=== PATIENT | male | born 1945 | race Caucasian/White ===

== ENCOUNTER 2019-02-06 06:41 | Day surgery (SDC) | payer MEDICARE ==
[2019-02-05 08:39] VITALS: BMI 25.1
[2019-02-06 07:51] LABS: #Basophils 0.1 thou/uL (0.0-0.2); #Eosinphils 0.3 thou/uL (0.0-0.7); #Lymphocytes 2.3 thou/uL (1.20-3.40); #Monocytes 0.8 thou/uL (0.11-0.59); #Neutrophils 3.3 thou/uL (1.40-6.50); %Basophils 1.3 % (0.0-1.0); %Eosinophils 3.9 % (0.0-10.0); %Lymphocytes 33.6 % (21.0-51.0); %Monocytes 12.1 % (0.0-10.0); Hemoglobin 15.7 g/dL (14.0-18.0); Mean Corpuscular HGB CONC 32.8 g/dL (32.0-36.0); Mean Corpuscular Hemoglobin 31.4 pg (27.0-31.0); Mean Corpuscular Volume 95.8 fL (78.0-98.0); Mean Platelet Volume 8.9 fL (7.4-10.4); Platelet Count 258 thou/uL (130-400); RBC Distribution Width 12.3 % (11.5-14.5); Red Blood Cell (RBC) Count 5.02 mill/uL (4.70-6.10); White Blood Cell (WBC) Count 6.8 thou/uL (4.8-10.8)
--- NOTE | 2019-02-06 08:35 | RAD ---
FRONTAL VIEW CHEST: INDICATIONS: Preoperative evaluation. FINDINGS: There is no evidence of consolidation, effusion, or pneumothorax. The cardiac silhouette is accentua carmela by the portable technique. IMPRESSION: No focal consolidation. POS: [facility]
[2019-02-06] MEDS ORDERED: Bupivacaine PF 0.5% 30 ML VIAL ONE (11:30)
[2019-02-06] MEDS ORDERED: Betamet Acet/Betamet Na Ph 30 MG/5 ML VIAL ONE (11:30)
[2019-02-06] MEDS ORDERED: Bacitracin Zinc Ointment 30 gm TUBE ONE (11:30)
[2019-02-06] MEDS ORDERED: Propofol 500 MG/50 ML VIAL ONE (12:00)
[2019-02-06] MEDS ORDERED: PROPOFOL 0 ML ONE (12:00)
[2019-02-06] MEDS ORDERED: Fentanyl 100 MCG/2 ML VIAL ONE (12:00)
[2019-02-06] MEDS ORDERED: Famotidine/PF 20 mg/2ml Vial ONE (12:00)
[2019-02-06] MEDS ORDERED: Ondansetron PF 4 MG/2 ML Vial ONE ×2 (12:22→16:22)
[2019-02-06] MEDS ORDERED: ePHEDrine/0.9% NaCl/PF SYRINGE 50 mg/10 ml ONE (12:43)
[2019-02-06] MEDS ORDERED: Ketorolac Tromethamine 30 MG/ML VIAL ONE ×2 (13:14)
[2019-02-06] MEDS ORDERED: ePHEDrine 50 MG/ML VIAL ONE (16:22)
[2019-02-06] MEDS ORDERED: PROPOFOL 200 MG/20 ML VIAL ONE (16:22)
--- NOTE | 2019-02-07 02:59 | OP ---
DATE OF PROCEDURE: 02/06/2019 PREOPERATIVE DIAGNOSIS: Right index finger dorsal proximal interphalangeal joint ganglion. POSTOPERATIVE DIAGNOSIS: ganglion with stalk running between the tendon with the synovitis of the joint. PROCEDURES PERFORMED: 1. Arthrotomy, proximal interphalangeal joint with synovectomy. 2. Ganglion finger excision. FINDINGS: 1.5 cm diameter mass. ESTIMATED BLOOD LOSS: 5 mL blood loss. TOURNIQUET TIME: 11 minutes. DESCRIPTION OF PROCEDURE: After successful general endotracheal anesthesia, the limb was prepped and draped. The patient had 12 mL of 0.5% Marcaine given at the metacarpophalangeal block level. We exsanguinated the limb, inflated tourniquet to 250 mmHg pressure, made a zigzag incision over the proximal phalangeal joint over its lateral edge to avoid the central line of the lesion and the joint. We then dissected down, found the mass, We slowly dissected the sheath and it from the tendon. We found some striated tendon fascicles which were split and the mass seemed to extend to it, so we opened the joint at this point, found the stalk with some synovitis via arthrotomy, did a synovectomy. We irrigated the joint. We removed the mass, sent it to the lab along with stalk. We released the tourniquet, obtained hemostasis. Then we were able to close the 1 cm longitudinal incision of the tendon with a running 5-0 buried Prolene suture. There was no gap formation at 90 degrees of flexion. We finished hemostasis, and closed the wound with 4-0 nylon interrupted mattress pattern and the patient left the operating room without evidence of anesthetic operative complication. Job ID: [id number]
== END 2019-02-06 14:17 | disposition home or self-care (01) ==
LOC: SDC 06:41
PROVIDERS: ATTEND Orthopaedic Surgery Hand Surgery
PROC: 0LB70ZZ Excision of Right Hand Tendon, Open Approach (ICD-10-PCS; principal; 2019-02-06)
DX: M67.441 Ganglion, right hand (principal); E78.00 Pure hypercholesterolemia, unspecified; I10 Essential (primary) hypertension; Z79.82 Long term (current) use of aspirin; Z79.899 Other long term (current) drug therapy; Z88.2 Allergy status to sulfonamides; Z88.5 Allergy status to narcotic agent
CPT/HCPCS: 36415; 71045; 85025; 88304; 93005; 93010; J0131; J0690; J0702; J1885; J2405; J2704; J3010; J3490; S0020; S0028

== ENCOUNTER 2021-12-19 11:00 | Outpatient (CLI) | payer MEDICARE ==
[2021-12-19 12:19] LABS: #Basophils 0.1 10x3/uL (0.0-0.2); #Eosinphils 0.1 10x3/uL (0.0-0.5); #Monocytes 0.7 10x3/uL (0.0-1.1); #Neutrophils 3.8 10x3/uL (1.5-8.4); %Basophils 0.8 % (0.0-2.0); %Eosinophils 1.6 % (0.0-6.0); %Lymphocytes 25.9 % (18.0-47.0); %Monocytes 11.6 % (0.0-10.0); %Neutrophils 59.5 % (40.0-75.0); Hemoglobin 15.7 g/dL (13.5-17.5); Mean Corpuscular HGB CONC 32.7 g/dL (32.0-36.0); Mean Corpuscular Hemoglobin 30.6 pg (27.0-33.0); Mean Corpuscular Volume 93.6 fl (81.2-95.1); Mean Platelet Volume 9.8 fl (7.4-10.4); Platelet Count 313 10x3/uL (150-450); RBC Distribution Width 12.3 % (11.5-14.5); Red Blood Cell (RBC) Count 5.13 10x6/uL (4.32-5.72); White Blood Cell (WBC) Count 6.4 10x3/uL (3.5-10.5)
[2021-12-19 13:11] LABS: Anion Gap 11 mmol/L (10-20); BUN (Urea Nitrogen) 14 mg/dL (8.4-25.7); Calc. Creatinine Clearance 0 mL/min (70-130); Calcium 9.2 mg/dL (7.8-10.44); Carbon Dioxide 30 mmol/L (23-31); Chloride 104 mmol/L (98-107); Glucose 95 mg/dL (83-110); Potassium 4.2 mmol/L (3.5-5.1); Sodium 141 mmol/L (136-145)
[2021-12-19 23:08] LABS: SARS-CoV-2 PCR by NAA Not Detected (NotDetected)
== END 2021-12-19 11:01 | disposition home or self-care (01) ==
LOC: LABBT 11:00
PROVIDERS: ATTEND Specialist
DX: Z01.818 Encounter for other preprocedural examination (principal); K40.20 Bilateral inguinal hernia, without obstruction or gangrene, not specified as recurrent; Z20.822 Contact with and (suspected) exposure to COVID-19
CPT/HCPCS: 80048; 85025; 93005; U0003; U0005; 93010

== ENCOUNTER 2021-12-22 07:24 | Day surgery (SDC) | payer MEDICARE ==
[2021-12-15 14:08] VITALS: BMI 25.5
[2021-12-22] MEDS ORDERED: Acetaminophen 500 MG TAB ONE (07:44)
[2021-12-22] MEDS ORDERED: Ketorolac Tromethamine 30 MG/ML VIAL ONE (07:44)
[2021-12-22] MEDS ORDERED: Gabapentin 100 MG CAP PO SCH (07:45)
[2021-12-22] MEDS ORDERED: Bupivacaine 0.25% HCL 30 ML VIAL ONE (09:47)
[2021-12-22] MEDS ORDERED: Xylocaine 1% w/ Epi 1:100K 10 ML VIAL ONE (09:47)
[2021-12-22] MEDS ORDERED: Fentanyl 250 MCG/5 ML VIAL ONE (09:52)
[2021-12-22] MEDS ORDERED: ePHEDrine 50 MG/ML VIAL ONE (10:06)
[2021-12-22] MEDS ORDERED: Dexamethasone 20 MG/5 ML VIAL ONE (10:06)
[2021-12-22] MEDS ORDERED: Ondansetron PF 4 MG/2 ML Vial ONE (10:06)
[2021-12-22] MEDS ORDERED: PROPOFOL 200 MG/20 ML VIAL ONE (10:06)
[2021-12-22] MEDS ORDERED: Lidocaine 1% PF 5 ML VIAL ONE (10:06)
[2021-12-22] MEDS ORDERED: Rocuronium Bromide 10 MG/ML (10ML VIAL) ONE (10:06)
[2021-12-22] MEDS ORDERED: Glycopyrrolate 0.2 MG/ML 5 ML SYRINGE ONE (10:06)
[2021-12-22] MEDS ORDERED: PHENYLEPHRINE-NS 100 MCG/ML 10 ML SYRINGE ONE (10:06)
[2021-12-22] MEDS ORDERED: Tamsulosin HCl 0.4 MG CAP ONE (15:18)
== END 2021-12-22 17:32 | disposition home or self-care (01) ==
LOC: SDC 07:24
PROVIDERS: ATTEND Specialist
PROC: 0YUA4JZ Supplement Bilateral Inguinal Region with Synthetic Substitute, Percutaneous Endoscopic Approach (ICD-10-PCS; principal; 2021-12-22)
DX: K40.20 Bilateral inguinal hernia, without obstruction or gangrene, not specified as recurrent (principal); E78.00 Pure hypercholesterolemia, unspecified; I10 Essential (primary) hypertension; Z79.899 Other long term (current) drug therapy; Z88.2 Allergy status to sulfonamides
CPT/HCPCS: 49650; C1781; J1885; J3010; S0020